=== PATIENT | female | born 1965 | race Caucasian/White ===

== ENCOUNTER 2021-07-11 15:38 | Outpatient (CLI) | payer OTHER, SELFPAY ==
[2021-07-11 15:37] VITALS: BP 139/77; PULSE 76; RESP 16; TEMP 36.6; O2SAT 100; BMI 32.5
[2021-07-11] MEDS: 0.9% Saline Lock 10 ML Syringe IV (15:49)
[2021-07-11 16:49] VITALS: BP 140/83; PULSE 76; RESP 16; TEMP 36.9; O2SAT 100
[2021-07-11 17:45] VITALS: BP 132/62; PULSE 73; RESP 16; TEMP 37.3; O2SAT 100
== END 2021-07-11 17:49 | disposition home or self-care (01) ==
LOC: MS3OUT 15:42 → MS3 15:43
PROVIDERS: Referring Provider Nurse Practitioner Adult Health; Visit Provider Nurse Practitioner Adult Health
DX: U07.1 COVID-19 (principal)
CPT/HCPCS: J7050; M0245; Q0245; A4216